=== PATIENT | female | born 1975 | race African-American/Black ===

== ENCOUNTER 2017-07-01 10:48 | Emergency (ER) | payer OTHER ==
[~2017-07-01] VITALS: Ht 170.2 cm; Wt 81.7 kg
[~2017-07-01 10:48] MED LIST: ACYCLOVIR 400400 M1; AMOXICILLIN 50500 M1 PO; APAP500; ASPIRIN EC81 M1; B-12250 MCG; BACTRIM DS TAB1 EACH; FLAGYL500 MG; FOLIC ACID0.4 MG; IBUPROFEN 600600 M1 PO; MACROBID 100 M100 M1 PO; METROGEL-VAGINA70 GM VG; MICONAZOLE 7 S100 M1 VG; NORCO 5-325 TA1 EACH PO; NYSTATIN1 EA10 MC; PHENERGAN 25 MG25 M1 PO; VANDAZOLE GEL 070 GM VG; VITAMIN E400 UNIT
[2017-07-01] MEDS ORDERED: NORFLEX100 MG PO (11:47)
[2017-07-01] MEDS ORDERED: NAPROSYN500 MG PO (11:47)
== END 2017-07-01 11:59 | disposition home or self-care (01) ==
LOC: ER 10:48
DX: S00.93XA Contusion of unspecified part of head, initial encounter (principal); S16.1XXA Strain of muscle, fascia and tendon at neck level, initial encounter; F07.81 Postconcussional syndrome; Z90.49 Acquired absence of other specified parts of digestive tract; Z88.5 Allergy status to narcotic agent; W18.30XA Fall on same level, unspecified, initial encounter; Y93.89 Activity, other specified; Y92.89 Other specified places as the place of occurrence of the external cause; Y99.8 Other external cause status

== ENCOUNTER 2018-05-04 12:29 | Emergency (ER) | payer OTHER ==
[~2018-05-04] VITALS: Ht 170.2 cm; Wt 79.8 kg
[~2018-05-04 12:29] MED LIST changes: +NAPROSYN500 MG PO; +NORFLEX100 MG PO
[2018-05-04 12:55] LABS: URINE BILIRUBIN NEGATIVE (Negative); URINE BLOOD 1+ (Negative); URINE CLARITY CLEAR; URINE COLOR YELLOW; URINE GLUCOSE-RANDOM* NEGATIVE (Negative); URINE KETONES NEGATIVE (Negative); URINE LEUKOCYTES-REFLEX NEGATIVE (Negative); URINE NITRITE-REFLEX NEGATIVE (Negative); URINE PROTEIN (DIPSTICK) NEGATIVE (Negative); URINE SPECIFIC GRAVITY >= 1.030 (1.005-1.035); URINE UROBILINOGEN 0.2 E.U./dl (0.2-1.0)
[2018-05-04 13:11] LABS: SQUAMOUS >10 Many /LPF (0-3)
[2018-05-04 13:12] LABS: BACTERIA-REFLEX 1-9 Few /HPF (None Seen); CASTS None Seen /LPF (None Seen); CRYSTALS None Seen /LPF (None Seen); URINE RBC 0-2 Rare /HPF (0-2); URINE WBC-REFLEX 0-5 Rare /HPF (0-5)
[2018-05-04 13:34] LABS: HEMATOCRIT 34.3 % (37.0-47.0); HEMOGLOBIN 11.8 gm/dL (12.0-15.0); MCH 32.1 pg (26.0-34.0); MCHC 34.4 g/dL (28.0-37.0); MCV 93.4 fL (80.0-100.0); PLATELET COUNT 246 thou/uL (150-400); RBC 3.67 mil/uL (4.20-5.00); RDW 12.4 % (10.5-14.5); WBC 2.5 thou/uL (4.0-11.0)
[2018-05-04 13:44] LABS: CALCIUM 8.9 mg/dL (8.5-10.1); CREATININE 0.8 mg/dL (0.6-1.0); POTASSIUM 3.4 mmol/L (3.5-5.1)
[2018-05-04 14:20] LABS: ABSOLUTE NEUTROPHILS 0.6 thou/uL (1.4-8.2)
[2018-05-04 14:21] LABS: ANISOCYTOSIS 1+
[2018-05-04] MEDS ORDERED: PRENATAL MULTI1 EAC6 PO (15:13)
[2018-05-04 15:28] VITALS: BP 141/65
== END 2018-05-04 15:29 | disposition home or self-care (01) ==
LOC: ER 12:29
PROVIDERS: Emergency Medicine
DX: O46.8X1 Other antepartum hemorrhage, first trimester (principal); Z3A.01 Less than 8 weeks gestation of pregnancy; Z90.49 Acquired absence of other specified parts of digestive tract; Z88.5 Allergy status to narcotic agent; Z88.8 Allergy status to other drugs, medicaments and biological substances

== ENCOUNTER 2018-08-17 02:08 | Emergency (ER) | payer OTHER ==
[~2018-08-17] VITALS: Ht 170.2 cm; Wt 79.8 kg
[~2018-08-17 02:08] MED LIST changes: +PRENATAL MULTI1 EAC6 PO
[2018-08-17 03:01] LABS: HEMATOCRIT 34.8 % (37.0-47.0); HEMOGLOBIN 11.8 gm/dL (12.0-15.0); MCH 31.2 pg (26.0-34.0); MCHC 33.9 g/dL (28.0-37.0); MCV 92.2 fL (80.0-100.0); PLATELET COUNT 223 thou/uL (150-400); RBC 3.78 mil/uL (4.20-5.00); RDW 12.9 % (10.5-14.5); WBC 3.5 thou/uL (4.0-11.0)
[2018-08-17 03:10] LABS: ANION GAP 11 mmol/L (7-16); BUN 17 mg/dL (7-18); CALCIUM 8.7 mg/dL (8.5-10.1); CHLORIDE 101 mmol/L (98-107); CO2 23 mmol/L (21-32); CREATININE 1.1 mg/dL (0.6-1.0); GLUCOSE 90 mg/dL (74-106); POTASSIUM 3.5 mmol/L (3.5-5.1); SODIUM 135 mmol/L (136-145)
[2018-08-17 03:19] LABS: TROPONIN-I <0.06 ng/mL (<0.06)
[2018-08-17 03:34] LABS: ABSOLUTE NEUTROPHILS 1.8 thou/uL (1.4-8.2)
[2018-08-17 03:49] VITALS: BP 124/70
--- NOTE | 2018-08-17 08:22 | EKG ---
[address] [address] ELECTROCARDIOGRAM REPORT Name: STEVEN QUINTANILLA Room #: DEP Deirdre#: [id number] ������������������ Admission: 08/17/18 ������������������ Attend Phys: Discharge: 08/17/18 ������������������ Date of : 77 Report #: [id number] ����������������������������������������������������������������� [id number] THIS REPORT FOR: //name// [facility] ED Test Date: 2018-08-17 Test Time: 02:22:18 Pat Name: STEVEN QUINTANILLA Department: Room: Gender: F [place] Steward: CHRISTIE : 1975 Requested By: Di Estrada Order Number: [id number] MD: Marvel Hammond Measurements Intervals [place] Rate: 80 P: 26 TN: 119 QRS: 58 QRSD: 100 T: 16 QT: 380 QTc: 439 Interpretive Statements Sinus rhythm Borderline short [place] interval No previous ECG available for comparison Electronically Signed On 08-17-2018 8:22:15 CDT by Marvel Hammond [email or web address] ��������������������������������������������� <ELECTRONICALLY SIGNED> ���������������������������������������� By: Marvel Hammond MD ��������������������������������������������� 08/17/18 0822 1 1 MD RADHA Kim
== END 2018-08-17 03:56 | disposition home or self-care (01) ==
LOC: ER 02:08
PROVIDERS: Student in an Organized Health Care Education/Training Program
DX: R07.89 Other chest pain (principal); Z90.49 Acquired absence of other specified parts of digestive tract; Z88.5 Allergy status to narcotic agent; Z88.8 Allergy status to other drugs, medicaments and biological substances

== ENCOUNTER 2018-11-24 21:13 | Emergency (ER) | payer OTHER ==
[~2018-11-24] VITALS: Ht 172.7 cm; Wt 80.3 kg
[2018-11-24] MEDS ORDERED: MOBIC15 MG PO (22:52)
[2018-11-24 23:17] VITALS: BP 123/63
== END 2018-11-24 23:17 | disposition home or self-care (01) ==
LOC: ER 21:13
DX: S30.0XXA Contusion of lower back and pelvis, initial encounter (principal); S09.8XXA Other specified injuries of head, initial encounter; Z88.5 Allergy status to narcotic agent; Z88.8 Allergy status to other drugs, medicaments and biological substances; Z90.49 Acquired absence of other specified parts of digestive tract; W10.8XXA Fall (on) (from) other stairs and steps, initial encounter; Y93.89 Activity, other specified; Y92.89 Other specified places as the place of occurrence of the external cause; Y99.8 Other external cause status

== ENCOUNTER 2019-03-08 13:55 | Emergency (ER) | payer OTHER ==
[~2019-03-08] VITALS: Ht 170.2 cm; Wt 84.8 kg
[~2019-03-08 13:55] MED LIST changes: +MOBIC15 MG PO
[2019-03-08 14:22] LABS: URINE BILIRUBIN NEGATIVE (Negative); URINE BLOOD 2+ (Negative); URINE CLARITY CLEAR; URINE COLOR YELLOW; URINE GLUCOSE-RANDOM* NEGATIVE (Negative); URINE KETONES NEGATIVE (Negative); URINE LEUKOCYTES-REFLEX NEGATIVE (Negative); URINE NITRITE-REFLEX NEGATIVE (Negative); URINE PROTEIN (DIPSTICK) NEGATIVE (Negative); URINE UROBILINOGEN 0.2 E.U./dl (0.2-1.0)
[2019-03-08 14:32] LABS: CASTS None Seen /LPF (None Seen); CRYSTALS None Seen /LPF (None Seen); SQUAMOUS 4-10 Moderate /LPF (0-3); URINE RBC 3-10 Few /HPF (0-2)
[2019-03-08 14:33] LABS: BACTERIA-REFLEX 1-9 Few /HPF (None Seen); URINE WBC-REFLEX None Seen /HPF (0-5)
[2019-03-08] MEDS ORDERED: FLEXERIL PO (14:33)
[2019-03-08 15:09] LABS: HEMOGLOBIN 11.8 gm/dL (12.0-15.0); MCHC 33.6 g/dL (28.0-37.0); MCV 95.1 fL (80.0-100.0); PLATELET COUNT 220 thou/uL (150-400); RBC 3.68 mil/uL (4.20-5.00); RDW 13.1 % (10.5-14.5); WBC 2.6 thou/uL (4.0-11.0)
[2019-03-08 15:16] LABS: CALCIUM 8.8 mg/dL (8.5-10.1); CREATININE 0.9 mg/dL (0.6-1.0); POTASSIUM 3.3 mmol/L (3.5-5.1)
[2019-03-08 15:26] LABS: ABSOLUTE NEUTROPHILS 0.9 thou/uL (1.4-8.2); ANISOCYTOSIS 1+
[2019-03-08 16:36] VITALS: BP 121/69
== END 2019-03-08 16:44 | disposition home or self-care (01) ==
LOC: ER 13:55
PROVIDERS: Nurse Practitioner Family
DX: R10.2 Pelvic and perineal pain (principal); K59.00 Constipation, unspecified; Z90.49 Acquired absence of other specified parts of digestive tract; Z90.79 Acquired absence of other genital organ(s); Z88.1 Allergy status to other antibiotic agents; Z88.5 Allergy status to narcotic agent

== ENCOUNTER 2019-04-20 18:33 | Emergency (ER) | payer OTHER ==
[~2019-04-20] VITALS: Ht 172.7 cm; Wt 80.7 kg
[~2019-04-20 18:33] MED LIST changes: +FLEXERIL PO
[2019-04-20 21:02] VITALS: BP 130/61
== END 2019-04-20 21:04 | disposition home or self-care (01) ==
LOC: ER 18:33
DX: R51 Headache (principal); Z88.5 Allergy status to narcotic agent; Z88.1 Allergy status to other antibiotic agents; Z90.49 Acquired absence of other specified parts of digestive tract

== ENCOUNTER 2019-05-13 23:12 | Emergency (ER) | payer OTHER ==
[~2019-05-13] VITALS: Ht 172.7 cm; Wt 81.7 kg
[2019-05-13] MEDS ORDERED: ZOVIRAX200 MG PO (23:19)
[2019-05-13] MEDS ORDERED: VYVANSE40 MG PO (23:19)
[2019-05-14 00:05] LABS: URINE BILIRUBIN NEGATIVE (Negative); URINE BLOOD NEGATIVE (Negative); URINE CLARITY CLEAR; URINE COLOR YELLOW; URINE GLUCOSE-RANDOM* NEGATIVE (Negative); URINE KETONES TRACE (Negative); URINE LEUKOCYTES-REFLEX NEGATIVE (Negative); URINE NITRITE-REFLEX NEGATIVE (Negative); URINE PROTEIN (DIPSTICK) NEGATIVE (Negative); URINE SPECIFIC GRAVITY 1.025 (1.005-1.035); URINE UROBILINOGEN 0.2 E.U./dl (0.2-1.0)
[2019-05-14] MEDS ORDERED: PEPCID20 MG PO (00:28)
[2019-05-14] MEDS ORDERED: URISPAS100 MG PO (00:28)
[2019-05-14 00:56] VITALS: BP 110/54
== END 2019-05-14 00:57 | disposition home or self-care (01) ==
LOC: ER 23:12
PROVIDERS: Emergency Medicine
DX: R30.0 Dysuria (principal); R35.0 Frequency of micturition; M54.5 Low back pain; Z90.49 Acquired absence of other specified parts of digestive tract; Z88.1 Allergy status to other antibiotic agents; Z88.2 Allergy status to sulfonamides; Z88.5 Allergy status to narcotic agent

== ENCOUNTER 2020-10-10 16:06 | Emergency (ER) | payer BC, OTHER ==
[~2020-10-10] VITALS: Ht 170.2 cm; Wt 75.8 kg
[~2020-10-10 16:06] MED LIST changes: +PEPCID20 MG PO; +URISPAS100 MG PO; +VYVANSE40 MG PO; +ZOVIRAX200 MG PO
[2020-10-10] MEDS ORDERED: OZEMPIC1 MG/0.75 SUBQ (16:24)
[2020-10-10 19:29] LABS: HEMATOCRIT 32.8 % (37.0-47.0); MCH 31.4 pg (26.0-34.0); MCHC 33.7 g/dL (28.0-37.0); MCV 93.2 fL (80.0-100.0); PLATELET COUNT 173 thou/uL (150-400); RBC 3.52 mil/uL (4.20-5.00); RDW 13.2 % (10.5-14.5); WBC 2.5 thou/uL (4.0-11.0)
[2020-10-10 19:42] LABS: CALCIUM 8.7 mg/dL (8.5-10.1); POTASSIUM 3.5 mmol/L (3.5-5.1)
[2020-10-10 19:48] LABS: ALBUMIN 3.7 g/dL (3.4-5.0); TOTAL BILIRUBIN 0.7 mg/dL (0.2-1.0); TOTAL PROTEIN 7.7 g/dL (6.4-8.2)
[2020-10-10 20:28] LABS: ABSOLUTE NEUTROPHILS 2.1 thou/uL (1.4-8.2)
[2020-10-10 21:00] LABS: URINE BILIRUBIN NEGATIVE (Negative); URINE BLOOD 3+ (Negative); URINE CLARITY CLEAR; URINE COLOR YELLOW; URINE GLUCOSE-RANDOM* NEGATIVE (Negative); URINE KETONES 2+ (Negative); URINE LEUKOCYTES-REFLEX NEGATIVE (Negative); URINE NITRITE-REFLEX NEGATIVE (Negative); URINE PROTEIN (DIPSTICK) TRACE (Negative)
[2020-10-10 21:09] LABS: CASTS None Seen /LPF (None Seen); SQUAMOUS 4-10 Moderate /LPF (0-3); URINE WBC-REFLEX 0-5 Rare /HPF (0-5)
[2020-10-10 21:10] LABS: CRYSTALS None Seen /LPF (None Seen); URINE RBC 1-2 Rare /HPF (NONE SEEN)
[2020-10-10] MEDS ORDERED: ZOFRAN ODT4 MG PO (21:59)
[2020-10-10 22:08] VITALS: BP 121/57
== END 2020-10-10 22:09 | disposition home or self-care (01) ==
LOC: ER 16:06
PROVIDERS: Physician Assistant
DX: E86.0 Dehydration (principal); Z20.822 Contact with and (suspected) exposure to COVID-19; R50.9 Fever, unspecified; Z90.49 Acquired absence of other specified parts of digestive tract; Z88.5 Allergy status to narcotic agent; Z88.2 Allergy status to sulfonamides; Z88.1 Allergy status to other antibiotic agents

== ENCOUNTER 2020-12-02 12:05 | Emergency (ER) | payer BC, OTHER ==
[~2020-12-02] VITALS: Ht 170.2 cm; Wt 72.6 kg
[~2020-12-02 12:05] MED LIST changes: +OZEMPIC1 MG/0.75 SUBQ; +ZOFRAN ODT4 MG PO
[2020-12-02 12:46] LABS: URINE BILIRUBIN NEGATIVE (Negative); URINE BLOOD NEGATIVE (Negative); URINE CLARITY CLEAR; URINE COLOR YELLOW; URINE GLUCOSE-RANDOM* NEGATIVE (Negative); URINE KETONES 1+ (Negative); URINE LEUKOCYTES-REFLEX NEGATIVE (Negative); URINE NITRITE-REFLEX NEGATIVE (Negative); URINE PROTEIN (DIPSTICK) NEGATIVE (Negative); URINE SPECIFIC GRAVITY 1.025 (1.005-1.035); URINE UROBILINOGEN 0.2 E.U./dl (0.2-1.0)
[2020-12-02 13:06] LABS: HEMATOCRIT 33.8 % (37.0-47.0); HEMOGLOBIN 11.7 gm/dL (12.0-15.0); MCH 31.4 pg (26.0-34.0); MCHC 34.5 g/dL (28.0-37.0); PLATELET COUNT 216 thou/uL (150-400); RBC 3.71 mil/uL (4.20-5.00); RDW 13.4 % (10.5-14.5); WBC 2.8 thou/uL (4.0-11.0)
[2020-12-02 13:17] LABS: CALCIUM 9.1 mg/dL (8.5-10.1); CREATININE 0.9 mg/dL (0.6-1.0); POTASSIUM 4.7 mmol/L (3.5-5.1)
[2020-12-02 13:23] LABS: TOTAL BILIRUBIN 0.7 mg/dL (0.2-1.0); TOTAL PROTEIN 8.4 g/dL (6.4-8.2)
[2020-12-02 13:51] LABS: ABSOLUTE NEUTROPHILS 1.4 thou/uL (1.4-8.2)
[2020-12-02 14:46] VITALS: BP 104/64
== END 2020-12-02 17:16 | disposition home or self-care (01) ==
LOC: ER 12:05
PROVIDERS: Emergency Medicine
DX: K29.70 Gastritis, unspecified, without bleeding (principal); Z90.49 Acquired absence of other specified parts of digestive tract; Z79.899 Other long term (current) drug therapy; Z88.6 Allergy status to analgesic agent; Z88.8 Allergy status to other drugs, medicaments and biological substances; Z88.2 Allergy status to sulfonamides